=== PATIENT | male | born 1975 | race African-American/Black ===

== ENCOUNTER 2017-11-03 14:19 | Emergency (ER) | payer BC ==
--- NOTE | 2017-11-03 14:29 | PDOC ---
Rapid Medical Evaluation Chief Complaint: Chest Pain Time Seen by Provider: 11/03/17 14:22 Medical Evaluation: Allergies Allergy/AdvReac Type Severity Reaction Status Date / Time No Known Allergies Allergy Verified 06/22/13 16:35 11/03/17 14:23 I have performed a brief in-person evaluation of this patient. The patient presents with a chief complaint of: chest pain x 3-4 days and spine pain yesterday - worse with movement of neck. 6/10 pain, "more like a pressure ", denies f/c/n/v/d Pertinent physical exam findings: well appearing, lungs ctab I have ordered the following: labs, ekg, cxr The patient will proceed to the ED for further evaluation. Discharge Disposition - Diagnosis Chest pain - Referrals Referrals: Ashley Ledbetter [Primary Care Provider] - - Patient Instructions - Post Discharge Activity
[2017-11-03 14:35] VITALS: BP 130/56; PULSE 80; TEMP 98.2; BMI 29.7
[2017-11-03 16:37] LABS: BASO % 0.6 % (0-2.0); EOS % 2.1 % (0-4.5); HEMATOCRIT 45.3 % (35.4-49); HEMOGLOBIN 15.8 GM/dL (11.7-16.9); LYMPH % 41.7 % (8-40); MCH 31.7 pg (25.7-33.7); MEAN CELL VOLUME 90.6 fl (80-96); MEAN PLT VOLUME 7.5 fl (7.5-11.1); MONO % 7.6 % (3.8-10.2); PLATELET COUNT 279 K/MM3 (134-434); RDW 12.8 % (11.9-15.9); WHITE BLOOD COUNT 4.8 K/mm3 (4.0-10.0)
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
[2017-11-03 16:54] LABS: INR 1.03 (0.82-1.09); PROTHROMBIN TIME (PATIENT) 11.6 SEC (9.98-11.88)
[2017-11-03 17:09] LABS: URINE APPEARANCE CLEAR; URINE BILIRUBIN NEGATIVE (<2.0 mg/dL); URINE BLOOD NEGATIVE (NEGATIVE); URINE COLOR YELLOW; URINE GLUCOSE (UA) NEGATIVE (NEGATIVE); URINE KETONE NEGATIVE (NEGATIVE); URINE LEUK ESTERASE NEGATIVE (NEGATIVE); URINE NITRITE NEGATIVE (NEGATIVE); URINE PROTEIN NEGATIVE (NEGATIVE); URINE UROBILINOGEN NEGATIVE mg/dL (0.2-1.0)
[2017-11-03 18:00] LABS: ALK PHOS 79 U/L (45-117); ANION GAP 4 (8-16); BILIRUBIN,TOTAL 0.4 mg/dL (0.2-1.0); BLOOD UREA NITROGEN 14 mg/dL (7-18); CALCIUM 8.9 mg/dL (8.5-10.1); CHLORIDE 106 mmol/L (98-107); CO2 29 mmol/L (21-32); CREATININE 0.9 mg/dL (0.7-1.3); GLUCOSE,RANDOM 98 mg/dL (74-106); POTASSIUM 4.5 mmol/L (3.5-5.1); SGOT/AST 21 U/L (15-37); SGPT/ALT 43 U/L (12-78); SODIUM 139 mmol/L (136-145)
--- NOTE | 2017-11-03 19:33 | PDOC ---
*Physical Exam - Vital Signs Last Vital Signs Temp Pulse Resp BP Pulse Ox 98.2 F 80 16 130/56 100 11/03/17 14:28 11/03/17 14:28 11/03/17 14:28 11/03/17 14:28 11/03/17 14:28 - Physical Exam General Appearance: Yes: Appropriately Dressed Respiratory/Chest: positive: Chest Tender (midthoracic tender chest. thoracic spine tenderness. ) Gastrointestinal/Abdominal: positive: Normal Bowel Sounds, Soft. negative: Tender Extremity: positive: Normal Capillary Refill, Normal Inspection, Normal Range of Motion Integumentary: positive: Normal Color, Dry, Warm Neurologic: positive: Fully Oriented, Alert, Normal Mood/Affect ED Treatment Course - LABORATORY CBC & Chemistry Diagram: 11/03/17 16:02 11/03/17 17:25 - ADDITIONAL ORDERS Additional order review: Laboratory Results 11/03/17 11/03/17 11/03/17 17:25 16:19 16:19 PT with INR 11.60 INR 1.03 Sodium 139 Potassium 4.5 Chloride 106 Carbon Dioxide 29 Anion Gap 4 L BUN 14 D Creatinine 0.9 Creat Clearance w eGFR > 60 Random Glucose 98 Calcium 8.9 Magnesium Total Bilirubin 0.4 D AST 21 ALT 43 Alkaline Phosphatase 79 Creatine Kinase Cancelled Troponin I Cancelled Total Protein 8.0 Albumin 4.0 Urine Color Urine Appearance Urine pH Ur Specific [place] Urine Protein Urine Glucose (UA) Urine Ketones Urine Blood Urine Nitrite Urine Bilirubin Urine Urobilinogen Ur Leukocyte Esterase 11/03/17 11/03/17 16:15 16:02 PT with INR INR Sodium Cancelled Potassium Cancelled Chloride Cancelled Carbon Dioxide Cancelled Anion Gap Cancelled BUN Cancelled Creatinine Cancelled Creat Clearance w eGFR Cancelled Random Glucose Cancelled Calcium Cancelled Magnesium Cancelled Total Bilirubin Cancelled AST Cancelled ALT Cancelled Alkaline Phosphatase Cancelled Creatine Kinase Troponin I Total Protein Cancelled Albumin Cancelled Urine Color Yellow Urine Appearance Clear Urine pH 5.0 Ur Specific [place] 1.023 Urine Protein Negative Urine Glucose (UA) Negative Urine Ketones Negative Urine Blood Negative Urine Nitrite Negative Urine Bilirubin Negative Urine Urobilinogen Negative Ur Leukocyte Esterase Negative 11/03/17 16:02 RBC 5.00 MCV 90.6 MCHC 35.0 RDW 12.8 MPV 7.5 Neutrophils % 48.0 D Lymphocytes % 41.7 H D Monocytes % 7.6 Eosinophils % 2.1 D Basophils % 0.6 Progress Note - Progress Note Progress Note: A: chest pain CTA: negative patient has midsternal reproducible pain radiating to the back. will d/c home. patient will follow up with his play back operator and orthopedic. strict return precautions reviewed with patient. will d/c home. *DC/Admit/Observation/Transfer Diagnosis at time of Disposition: Chest pain Qualifiers: Chest pain type: unspecified Qualified Code(s): R07.9 - Chest pain, unspecified - Discharge Dispostion Disposition: HOME - Referrals Referrals: Ashley Ledbetter [Primary Care Provider] - Kris Connors MD [Staff Physician] - - Patient Instructions Printed Discharge Instructions: DI for Atypical Chest Pain Additional Instructions: please follow up with your orthopedic and play back operator as soon as possible. take ibuprofen every 6 hours as needed for pain. - Post Discharge Activity Forms/Work/School Notes: Back to Work
[2017-11-03] MEDS ORDERED: KETOROLAC TROMETHAMINE 30 MG/1 ML VIAL IVPUSH ONE (20:33)
[2017-11-03] MEDS ORDERED: KETOROLAC TROMETHAMINE 30 MG/1 ML VIAL ONE (20:39)
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
== END 2017-11-03 21:23 | disposition home or self-care (01) ==
LOC: JER 14:19
PROC: 3E0333Z Introduction of Anti-inflammatory into Peripheral Vein, Percutaneous Approach (ICD-10-PCS; principal; 2017-11-03)
DX: R07.9 Chest pain, unspecified (principal); I10 Essential (primary) hypertension; F17.210 Nicotine dependence, cigarettes, uncomplicated
CPT/HCPCS: 36415; 71046-TC-FY; 71275-TC; 72050-TC-FY; 72070-TC-FY; 74175-TC; 80053; 81003; 82550; 84484; 85025; 85610; 93005; 93010; 99285-25

== ENCOUNTER 2017-11-04 14:37 | Emergency (ER) | payer OTHER, BC ==
[2017-11-04 14:57] VITALS: BP 134/87; PULSE 63; TEMP 98.5; BMI 28.7
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
== END 2017-11-04 16:35 | disposition home or self-care (01) ==
LOC: FER 14:37
DX: F17.210 Nicotine dependence, cigarettes, uncomplicated (principal); I10 Essential (primary) hypertension; M79.1 Myalgia; V44.0XXA Car driver injured in collision with heavy transport vehicle or bus in nontraffic accident, initial encounter; Y93.89 Activity, other specified; Y92.89 Other specified places as the place of occurrence of the external cause
CPT/HCPCS: 71046-TC-FY; 72070-TC-FY; 99282-25